=== PATIENT | female | born 1935 | race Caucasian/White ===

== ENCOUNTER 2017-08-28 14:58 | Inpatient (IN) | payer BC, MEDICARE ==
[~2017-08-28] VITALS: Ht 152.4 cm; Wt 71.5 kg
[2017-08-28] MEDS ORDERED: ONDANSETRON 4 MG TABLET PO PRN (18:00)
[2017-08-28] MEDS: PLEASE ENTER ALLERGIES MC SCH (18:00)
[2017-08-28] MEDS ORDERED: DOCUSATE 100 MG CAPSULE PO PRN (18:00)
[2017-08-28] MEDS ORDERED: POLYETHYLENE GLYCOL 17 GM PACKET PO PRN (18:00)
[2017-08-28 18:08] VITALS: BP 149/91
[2017-08-28 18:43] LABS: HEMOGLOBIN A1C 8.3 % (4.2-6.3)
[2017-08-28 18:59] VITALS: BP 159/83
[2017-08-28] MEDS ORDERED: LISI10TA2 PO (21:33)
[2017-08-28] MEDS ORDERED: ALPR0.5T PO (21:33)
[2017-08-28] MEDS ORDERED: INSU100I13 SQ-INSULIN (21:33)
[2017-08-28] MEDS ORDERED: FURO40TA6 PO (21:33)
[2017-08-28] MEDS ORDERED: POTA10TA11 PO (21:33)
[2017-08-28] MEDS ORDERED: METF500T4 PO (21:33)
[2017-08-28] MEDS ORDERED: ATEN50TA41 PO (21:33)
[2017-08-28] MEDS ORDERED: ATOR20TA9 PO (21:33)
[2017-08-28] MEDS: metFORMIN 500 MG TABLET PO SCH (22:30)
[2017-08-28] MEDS: ATORVASTATIN 20 MG TABLET PO SCH (23:02)
[2017-08-28] MEDS: ATENOLOL 50 MG TABLET PO SCH (23:02)
[2017-08-28] MEDS: LISINOPRIL 10 MG TABLET PO SCH (23:02)
[2017-08-28] MEDS: POTASSIUM CHLORIDE 10 MEQ TABLET.ER PO SCH (23:02)
[2017-08-28] MEDS: INSULIN GLARGINE 100 UNITS/ML, PEN SQ-INSULIN SCH (23:03)
[2017-08-29] VITALS (7 sets, daily range): BP systolic 91–172; BP diastolic 58–98
[2017-08-29] MEDS: PLEASE ENTER ALLERGIES MC SCH ×3 (02:00→18:14)
[2017-08-29 05:58] LABS: ALBUMIN 3.7 g/dL (3.4-5.0); ANION GAP 10 mmol/L (5-15); CALCIUM 8.6 mg/dL (8.5-10.1); CHLORIDE 108 mmol/L (98-107)
[2017-08-29 06:03] LABS: ALANINE AMINOTRANSFERASE 19 U/L (12-78); ALKALINE PHOSPHATASE 59 U/L (45-117); BILIRUBIN,TOTAL 0.5 mg/dL (0.2-1.0); CHOL/HDL RATIO 2.6; CHOLESTEROL, TOTAL 125 mg/dL (140-239); CREATININE 0.73 mg/dL (0.55-1.02); HDL CHOL % 39 % (28-40); HDL CHOLESTEROL (DIRECT) 49 mg/dL (40-60); LDL CHOLESTEROL,CALCULATED 57 mg/dL (54-169); LDL/HDL RATIO 1.2 (0.5-3.0); TOTAL PROTEIN 7.2 g/dL (6.4-8.2); TRIGLYCERIDES 93 mg/dL (50-200); VLDL CHOLESTEROL 19 mg/dL (0-25)
[2017-08-29 06:17] LABS: BASOPHILS # (AUTO) 0.09 x10^3/uL (0-0.1); BASOPHILS % (AUTO) 1 % (0-1); EOSINOPHILS # (AUTO) 0.16 x10^3/uL (0-0.4); EOSINOPHILS % (AUTO) 2 % (1-7); LYMPHOCYTES # (AUTO) 2.37 x10^3/uL (1-3.4); LYMPHOCYTES % (AUTO) 25 % (22-44); MD NO; MEAN CORPUSCULAR HEMOGLOBIN 29.7 pg (27.0-34.8); MEAN CORPUSCULAR HGB CONC 32.6 g/dL (32.4-35.8); MEAN CORPUSCULAR VOLUME 91.3 fL (80-100); MEAN PLATELET VOLUME 8.5 fL (7.4-10.4); MONOCYTES # (AUTO) 0.72 x10^3/uL (0.2-0.8); MONOCYTES % (AUTO) 8 % (2-9); NEUTROPHILS # (AUTO) 6.22 x10^3/uL (1.8-6.8); NEUTROPHILS % (AUTO) 65 % (42-75); PLATELET COUNT 353 x10^3/uL (130-400); RED BLOOD COUNT 4.46 x10^6/uL (3.82-5.3); RED CELL DISTRIBUTION WIDTH 13.7 % (9.6-15.2)
[2017-08-29] MEDS: metFORMIN 500 MG TABLET PO SCH ×3 (08:28→21:00)
[2017-08-29] MEDS: ASPIRIN 81 MG TABLET CHEW PO/NG SCH (08:41)
[2017-08-29] MEDS: FUROSEMIDE 40 MG TABLET PO SCH (08:42)
[2017-08-29] MEDS ORDERED: DEXTROSE 50%, 50ML SYRINGE IVPush PRN (12:00)
[2017-08-29] MEDS ORDERED: GLUCAGON 1 MG IM PRN (12:00)
[2017-08-29] MEDS ORDERED: DEXTROSE 4 GM TAB.CHEW PO PRN (12:00)
[2017-08-29] MEDS: SODIUM CHLORIDE FLUSH 10ML SYR IVF SCH ×2 (12:21→21:00)
[2017-08-29] MEDS: INSULIN LISPRO 100 UNITS/ML, PEN SQ-INSULIN SCH ×2 (16:55→20:54)
[2017-08-29] MEDS: ATENOLOL 50 MG TABLET PO SCH (20:49)
[2017-08-29] MEDS: LISINOPRIL 10 MG TABLET PO SCH (20:50)
[2017-08-29] MEDS: POTASSIUM CHLORIDE 10 MEQ TABLET.ER PO SCH (20:50)
[2017-08-29] MEDS: ATORVASTATIN 20 MG TABLET PO SCH (20:50)
[2017-08-29] MEDS: ALPRazolam 1MG TABLET PO PRN (20:52)
[2017-08-29] MEDS: INSULIN GLARGINE 100 UNITS/ML, PEN SQ-INSULIN SCH (20:54)
[2017-08-29] MEDS: ACETAMINOPHEN 650 MG/20.3 ML UDC PO PRN (22:47)
[2017-08-30 02:03] VITALS: BP 128/79
[2017-08-30] MEDS: INSULIN LISPRO 100 UNITS/ML, PEN SQ-INSULIN SCH ×4 (07:00→20:56)
[2017-08-30 07:16] VITALS: BP 139/81
[2017-08-30] MEDS: metFORMIN 500 MG TABLET PO SCH ×3 (07:23→19:25)
[2017-08-30] MEDS: ACETAMINOPHEN 650 MG/20.3 ML UDC PO PRN (10:07)
[2017-08-30] MEDS: ASPIRIN 81 MG TABLET CHEW PO/NG SCH (10:08)
[2017-08-30] MEDS: ALPRazolam 1MG TABLET PO PRN ×2 (10:09→20:58)
[2017-08-30] MEDS: FUROSEMIDE 40 MG TABLET PO SCH (10:10)
[2017-08-30] MEDS: SODIUM CHLORIDE FLUSH 10ML SYR IVF SCH ×2 (10:13→20:55)
[2017-08-30 13:00] VITALS: BP 100/65
[2017-08-30] MEDS ORDERED: ASPI-515 PO/NG (13:54)
[2017-08-30] MEDS ORDERED: ENOXAPARIN 40 MG/0.4 ML SQ SCH (16:30)
[2017-08-30 20:05] VITALS: BP 159/87
[2017-08-30] MEDS: POTASSIUM CHLORIDE 10 MEQ TABLET.ER PO SCH (20:55)
[2017-08-30] MEDS: ATORVASTATIN 20 MG TABLET PO SCH (20:55)
[2017-08-30] MEDS: APIXABAN 5 MG TABLET PO SCH (20:55)
[2017-08-30] MEDS: LISINOPRIL 10 MG TABLET PO SCH (20:55)
[2017-08-30] MEDS: ATENOLOL 50 MG TABLET PO SCH (20:56)
[2017-08-30] MEDS: INSULIN GLARGINE 100 UNITS/ML, PEN SQ-INSULIN SCH (20:56)
[2017-08-31 01:36] VITALS: BP 128/76
[2017-08-31 06:48] VITALS: BP 156/94
[2017-08-31] MEDS: INSULIN LISPRO 100 UNITS/ML, PEN SQ-INSULIN SCH ×4 (07:00→20:08)
[2017-08-31] MEDS ORDERED: APIX5TAB PO (07:07)
[2017-08-31] MEDS: metFORMIN 500 MG TABLET PO SCH ×3 (09:12→20:06)
[2017-08-31] MEDS: FUROSEMIDE 40 MG TABLET PO SCH (09:12)
[2017-08-31] MEDS: SODIUM CHLORIDE FLUSH 10ML SYR IVF SCH ×2 (09:13→20:06)
[2017-08-31] MEDS: APIXABAN 5 MG TABLET PO SCH ×2 (09:13→20:06)
[2017-08-31] MEDS: ACETAMINOPHEN 650 MG/20.3 ML UDC PO PRN (11:16)
[2017-08-31 12:07] VITALS: BP 112/70
[2017-08-31 19:53] VITALS: BP 109/72
[2017-08-31] MEDS: POTASSIUM CHLORIDE 10 MEQ TABLET.ER PO SCH (20:06)
[2017-08-31] MEDS: ATENOLOL 50 MG TABLET PO SCH (20:07)
[2017-08-31] MEDS: INSULIN GLARGINE 100 UNITS/ML, PEN SQ-INSULIN SCH (20:07)
[2017-08-31] MEDS: ALPRazolam 1MG TABLET PO PRN (20:07)
[2017-08-31] MEDS: ATORVASTATIN 20 MG TABLET PO SCH (20:07)
[2017-08-31] MEDS: LISINOPRIL 10 MG TABLET PO SCH (20:07)
[2017-09-01 01:23] VITALS: BP 100/66
[2017-09-01] MEDS: ACETAMINOPHEN 650 MG/20.3 ML UDC PO PRN ×3 (01:34→15:25)
[2017-09-01 06:44] VITALS: BP 95/61
[2017-09-01] MEDS: metFORMIN 500 MG TABLET PO SCH ×2 (08:42→16:13)
[2017-09-01] MEDS: APIXABAN 5 MG TABLET PO SCH (08:42)
[2017-09-01] MEDS: INSULIN LISPRO 100 UNITS/ML, PEN SQ-INSULIN SCH ×3 (08:44→16:13)
[2017-09-01] MEDS: SODIUM CHLORIDE FLUSH 10ML SYR IVF SCH (08:45)
[2017-09-01] MEDS: FUROSEMIDE 40 MG TABLET PO SCH (09:00)
[2017-09-01 14:16] VITALS: BP 104/69
[2017-09-06] MEDS ORDERED: APIXABAN 5 MG TABLET PO SCH (21:00)
== END 2017-09-01 17:57 | DRG 65 ==
LOC: 4WST 17:31
PROVIDERS: ADMIT Hospitalist; ATTEND Hospitalist
DX: I63.9 Cerebral infarction, unspecified (principal); G81.94 Hemiplegia, unspecified affecting left nondominant side; I82.432 Acute embolism and thrombosis of left popliteal vein; R13.10 Dysphagia, unspecified; J44.9 Chronic obstructive pulmonary disease, unspecified; E11.9 Type 2 diabetes mellitus without complications; I10 Essential (primary) hypertension; E78.5 Hyperlipidemia, unspecified; M19.90 Unspecified osteoarthritis, unspecified site; E66.9 Obesity, unspecified; I70.0 Atherosclerosis of aorta; M71.22 Synovial cyst of popliteal space [Baker], left knee; R29.810 Facial weakness; Z72.0 Tobacco use; Z79.4 Long term (current) use of insulin; Z83.3 Family history of diabetes mellitus; Z90.710 Acquired absence of both cervix and uterus; Z68.30 Body mass index [BMI] 30.0-30.9, adult
CPT/HCPCS: 36415; 70551; 71045; 74230; 80053; 80061; 82962; 83036; 85025; 93005; 93306; 93880; J1650; 92523-GN; J1815